=== PATIENT | female | born 1940 | race Caucasian/White ===

== ENCOUNTER 2017-07-27 23:37 | Observation (INO) | payer OTHER ==
[2017-07-28] MEDS ORDERED: FAMOTIDINE 20 MG/2 ML VIAL IV ONE (02:29)
--- NOTE | 2017-07-28 05:12 | ER ---
Nurse's Notes [facility] Name: Alda Caceres Age: 77 yrs Sex: Female : 1940 Arrival Date: 07/27/2017 Time: 23:38 Bed 19 Private MD: Diagnosis: Chest Pain Presentation: 07/27 23:42 Presenting complaint: Patient states: "Starting last night I was in [place] and I ao started having this pain in my back then in came down and I was able to sleep. The pain came back this morning in the back, but now is radiating to my left side of my rib cage." Patient denies nausea, fever or diarrhea. Patient denies any fall or injuries to the back or the rib cage. Patient report indigestion also. Transition of care: patient was not received from another setting of care. Onset of symptoms was July 26, 2017 at 16:00. Care prior to arrival: Medication(s) given: Tylenol, 1000 mg, Around 1300. 23:42 Method Of Arrival: Ambulatory ao 23:42 Acuity: CIARAN 3 ao Triage Assessment: 07/28 00:01 General: Appears in no apparent distress. comfortable, Behavior is calm, cooperative, ao appropriate for age. Pain: Complains of pain in back Pain radiates to Left rib cage. Historical: - Allergies: 07/27 23:56 PENICILLINS; ao 23:56 codeine sulfate; ao - Home Meds: 23:56 rosuvastatin 20 mg oral tab 1 tab once daily [Active]; metformin 500 mg Oral tr24 1 tab ao twice a day [Active]; pioglitazone 45 mg oral tab 1 tab once daily [Active]; ramipril 10 mg Oral cap 1 cap once daily [Active]; diltiazem HCl 300 mg Oral cp24 1 cap once daily [Active]; hydrochlorothiazide 25 mg Oral tab 1 tab once daily [Active]; metoprolol tartrate 100 mg Oral tab 1 tab once daily [Active]; Januvia 100 mg oral tab 1 tab once daily [Active]; 07/28 07:00 Trulicity subcutaneous subcutaneous [Active]; rb1 - PMHx: 07/27 23:56 Hyperlipidemia; Hypertension; Diabetes - NIDDM; ao - PSHx: 23:56 Hysterectomy; Tonsillectomy; Appendectomy; ao - Immunization history:: Adult Immunizations up to date. - Social history:: Smoking status: Patient/guardian denies using tobacco, Patient/guardian denies using alcohol, street drugs. Screenin/25 01:48 Abuse screen: Denies threats or abuse. Nutritional screening: No deficits noted. rk2 Tuberculosis screening: No symptoms or risk factors identified. Fall Risk None identified. Assessment: 01:48 General: Appears in no apparent distress. obese, well developed, well nourished, rk2 Behavior is calm, cooperative. Pain: Complains of pain in back and abdomen. Neuro: Level of Consciousness is alert, obeys commands, Oriented to person, place, time, situation. Respiratory: Airway is patent Respiratory effort is even, unlabored, Respiratory pattern is regular, symmetrical. GI: Abdomen is obese. Derm: Skin is pink, warm \\T\\ dry. 05:03 Reassessment: See paper chart from 0200 to 0500 due to system down. ao 05:23 Reassessment: Patient appears in no apparent distress at this time. Patient and/or ao family updated on plan of care and expected duration. Pain level reassessed. Patient is alert, oriented x 3, equal unlabored respirations, skin warm/dry/pink. Waiting on room assignment. 06:32 Reassessment: Patient appears in no apparent distress at this time. Patient and/or ao family updated on plan of care and expected duration. Pain level reassessed. Patient is alert, oriented x 3, equal unlabored respirations, skin warm/dry/pink. Patient to be taken to her room after shift change. 07:00 General: Appears in no apparent distress. comfortable, Behavior is calm, cooperative. rb1 Neuro: Level of Consciousness is alert, obeys commands, Oriented to person, place, time, situation. Cardiovascular: Capillary refill < 3 seconds is brisk in bilateral fingers Rhythm is sinus rhythm with unifocal PVCs. Respiratory: Airway is patent Respiratory effort is even, unlabored, Respiratory pattern is regular, symmetrical. 07:00 Derm: Skin is pink, warm \\T\\ dry. rb1 07:00 Pain: Complains of pain in left flank and left ribs Pain currently is 5 out of 10 on a rb1 pain scale. 08:00 Reassessment: Patient appears in no apparent distress at this time. No changes from rb1 previously documented assessment. 08:25 Reassessment: Left a voice mail for Dr. Blue to put orders in for the pt so we could rb1 get a room and send her to the floor. 08:52 Reassessment: Patient appears in no apparent distress at this time. Patient and/or rb1 family updated on plan of care and expected duration. Pain level reassessed. Patient is alert, oriented x 3, equal unlabored respirations, skin warm/dry/pink. 09:00 Reassessment: Called Dr. Sandoval to see if he was taking this pt. He stated, "It will be rb1 Dr. Blue. Dr. Oropeza saw the pt. and should have put orders in.". 09:04 Reassessment: MAL Smallwood told me to go ahead and put in an order for a heart healthy rb1 diet until other orders are put in. 10:00 Reassessment: Patient and/or family updated on plan of care and expected duration. Pain aj1 level reassessed. General: Appears in no apparent distress. comfortable, Behavior is calm, cooperative. Pain: Complains of pain in back Pain currently is 3 out of 10 on a pain scale. Neuro: Level of Consciousness is awake, alert, obeys commands, Oriented to person, place, time, situation. Cardiovascular: Patient's skin is warm and dry. Rhythm is sinus rhythm with unifocal PVCs. Respiratory: Airway is patent Respiratory effort is even, unlabored, Respiratory pattern is regular, symmetrical. GI: Abdomen is non-distended. Derm: Skin is pink, warm \\T\\ dry. normal. 10:46 Reassessment: Patient appears in no apparent distress at this time. No changes from aj1 previously documented assessment. Patient and/or family updated on plan of care and expected duration. Pain level reassessed. Patient is alert, oriented x 3, equal unlabored respirations, skin warm/dry/pink. Vital Signs: 07/27 23:57 BP 155 / 66; Pulse 67; Resp 18; Temp 98.6; Pulse Ox 100% on R/A; Weight 72.57 kg; ao Height 6 ft. 4 in. (193.04 cm); Pain /10; 07/28 05:23 BP 158 / 55; Pulse 73; Resp 18; Pulse Ox 100% ; Pain 0/10; ao 06:32 BP 148 / 56; Pulse 79; Resp 12; Temp 98.2(O); Pulse Ox 22% ; Pain 0/10; ao 07:00 BP 149 / 70; Pulse 74; Resp 16; Pulse Ox 100% on R/A; Weight 72.57 kg (R); Height 5 ft. rb1 6 in. (167.64 cm); Pain 5/10; 08:00 BP 163 / 63; Pulse 75; Resp 18; Pulse Ox 100% on R/A; rb1 10:44 BP 162 / 75; Pulse 80; Resp 18; Temp 98.9; Pulse Ox 100% on R/A; aj1 07:00 Body Mass Index 25.82 (72.57 kg, 167.64 cm) rb1 07:00 CORRECTION ON HEIGHT AND WEIGHT rb1 ED Course: 07/27 23:38 Patient arrived in ED. do 23:48 Triage completed. ao 23:57 Arm band placed on right wrist. Patient placed in an exam room, on a stretcher, on ao pulse oximetry, Patient notified of wait time. 07/28 01:17 Mike Jimenez MD is Attending Physician. wa 01:48 Naomie Branham RN is Primary Nurse. rk2 01:48 Patient has correct armband on for positive identification. Placed in gown. Bed in low rk2 position. Call light in reach. 01:53 Lexx Valente MD is Hospitalizing Provider. wa 06:06 BMP Sent. ao 06:06 BNP Sent. ao 06:07 CBC with Diff Sent. ao 06:07 CPK Sent. ao 06:07 D-Dimer Sent. ao 06:07 Hepatic Function Sent. ao 06:07 Lipase Sent. ao 06:07 Magnesium Sent. ao 06:07 PT-INR Sent. ao 06:08 Urine Dipstick--Ancillary (enter results) Sent. ao 06:59 Report given to URIAH Andres. ao 07:00 Inserted saline lock: 20 gauge in right antecubital area, using aseptic technique. rb1 ,using aseptic technique. IV was inserted on overnight stocker, but was not documented. IV flushes well and has good blood return. 09:55 Report given to URIAH Guillen. rb1 10:44 Report given to URIAH Allred on 4th floor. aj1 10:45 No provider procedures requiring assistance completed. Patient admitted, IV remains in aj1 place. Administered Medications: 05:03 Not Given (SEE PAPER CHART FOR ADMINISTRATION): Pepcid 20 mg IVP once ao Outcome: 01:54 Decision to Hospitalize by Provider. ny 10:47 Admitted to Tele accompanied by tech, via wheelchair, room 402, with chart. aj1 10:47 Condition: stable 10:47 Discharge instructions given to patient, Instructed on the need for admit, Demonstrated understanding of instructions. 11:08 Patient left the ED. aj1 Signatures: Jeanne Corrales RN RN aj1 Mckenna Sanchez RN RN rb1 Nabeel Marcum RN RN ao Ogletree, Danielle do Appiah, William, MD MD wa Kidder, Rhonda, RN RN rk2 Corrections: (The following items were deleted from the chart) 07/27 23:49 23:42 Presenting complaint: Patient states: "Starting last night I was in [place] and I ao started having this pain in my back then in came down and I was able to sleep. The pain came back this morning in the back, but now is radiating to my left side of my rib cage." Patient denies nausea, fever or diarrhea. Patient denies any fall or injuries to the back or the rib cage. ao 07/28 07:38 07:00 Cardiovascular: Capillary refill < 3 seconds is brisk in bilateral fingers rb1 rb1
--- NOTE | 2017-07-28 05:12 | EDPHYS ---
Physician Documentation [facility] Name: Alda Caceres Age: 77 yrs Sex: Female : 1940 Arrival Date: 07/27/2017 Time: 23:38 Bed 19 Private MD: ED Physician Mike Jimenez Historical: - Allergies: 07/27 23:56 PENICILLINS; ao 23:56 codeine sulfate; ao - Home Meds: 23:56 rosuvastatin 20 mg oral tab 1 tab once daily [Active]; metformin 500 mg Oral tr24 1 tab ao twice a day [Active]; pioglitazone 45 mg oral tab 1 tab once daily [Active]; ramipril 10 mg Oral cap 1 cap once daily [Active]; diltiazem HCl 300 mg Oral cp24 1 cap once daily [Active]; hydrochlorothiazide 25 mg Oral tab 1 tab once daily [Active]; metoprolol tartrate 100 mg Oral tab 1 tab once daily [Active]; Januvia 100 mg oral tab 1 tab once daily [Active]; 07/28 07:00 Trulicity subcutaneous subcutaneous [Active]; rb1 - PMHx: 07/27 23:56 Hyperlipidemia; Hypertension; Diabetes - NIDDM; ao - PSHx: 23:56 Hysterectomy; Tonsillectomy; Appendectomy; ao - Immunization history:: Adult Immunizations up to date. - Social history:: Smoking status: Patient/guardian denies using tobacco, Patient/guardian denies using alcohol, street drugs. Vital Signs: 23:57 BP 155 / 66; Pulse 67; Resp 18; Temp 98.6; Pulse Ox 100% on R/A; Weight 72.57 kg; ao Height 6 ft. 4 in. (193.04 cm); Pain 5/10; 07/28 05:23 BP 158 / 55; Pulse 73; Resp 18; Pulse Ox 100% ; Pain 0/10; ao 06:32 BP 148 / 56; Pulse 79; Resp 12; Temp 98.2(O); Pulse Ox 22% ; Pain 0/10; ao 07:00 BP 149 / 70; Pulse 74; Resp 16; Pulse Ox 100% on R/A; Weight 72.57 kg (R); Height 5 ft. rb1 6 in. (167.64 cm); Pain 5/10; 08:00 BP 163 / 63; Pulse 75; Resp 18; Pulse Ox 100% on R/A; rb1 10:44 BP 162 / 75; Pulse 80; Resp 18; Temp 98.9; Pulse Ox 100% on R/A; aj1 07:00 Body Mass Index 25.82 (72.57 kg, 167.64 cm) rb1 07:00 CORRECTION ON HEIGHT AND WEIGHT rb1 MDM: 01:17 Patient medically screened. 07/28 01:42 Order name: BMP 07/28 01:42 Order name: BNP 07/28 01:42 Order name: CBC with Diff 07/28 01:42 Order name: CPK 07/28 01:42 Order name: D-Dimer 07/28 01:42 Order name: Hepatic Function 07/28 01:42 Order name: Lipase 07/28 01:42 Order name: Magnesium 07/28 01:42 Order name: PT-INR 07/28 01:42 Order name: Troponin (emerg Dept Use Only) 07/28 04:59 Order name: Urine Dipstick--Ancillary (enter results) em1 07/28 05:19 Order name: BNP B-Type Natriuretic Peptide; Complete Time: 15:17 EDMS 07/28 05:20 Order name: Troponin (Emerg Dept Use Only); Complete Time: 15:17 EDMS 07/28 05:20 Order name: Basic Metabolic Panel; Complete Time: 15:17 EDMS 07/28 05:21 Order name: Liver (Hepatic) Function; Complete Time: 15:17 EDMS 07/28 05:21 Order name: Creatine Phosphokinase; Complete Time: 15:17 EDMS 07/28 05:21 Order name: Magnesium; Complete Time: 15:17 EDMS 07/28 05:21 Order name: Lipase; Complete Time: 15:17 EDMS 07/28 05:23 Order name: CBC with Automated Diff; Complete Time: 15:17 EDMS 07/28 05:25 Order name: Protime (+INR); Complete Time: 15:17 EDMS 07/28 05:25 Order name: D-Dimer; Complete Time: 15:17 EDMS 07/28 08:08 Order name: Urine Dipstick-Ancillary; Complete Time: 15:17 EDMS 07/28 09:14 Order name: CBC with Automated Diff; Complete Time: 15:17 EDMS 07/28 09:16 Order name: Basic Metabolic Panel; Complete Time: 15:17 EDOK 07/28 09:16 Order name: Lipase; Complete Time: 15:17 [facility] 07/28 09:20 Order name: Protime (+INR); Complete Time: 15:17 [facility] 07/28 09:20 Order name: D-Dimer; Complete Time: 15:17 [facility] 07/28 09:21 Order name: Troponin (Emerg Dept Use Only); Complete Time: 15: EDOK 07/28 09:22 Order name: Liver (Hepatic) Function; Complete Time: 15: EDMS 07/28 09:22 Order name: Creatine Phosphokinase; Complete Time: 15: EDOK 07/28 01:42 Order name: XRAY Chest Pa And Lat (2 Views) sc 07/28 01:42 Order name: EKG; Complete Time: 05:11 sc 07/28 01:42 Order name: Cardiac monitoring; Complete Time: 05:03 sc 07/28 01:42 Order name: EKG - Nurse/Tech; Complete Time: 05:03 sc 07/28 01:42 Order name: IV Saline Lock; Complete Time: 05:03 sc 07/28 01:42 Order name: Labs collected and sent; Complete Time: 05:03 sc 07/28 01:42 Order name: O2 Per Protocol; Complete Time: 05:03 sc 07/28 01:42 Order name: O2 Sat Monitoring; Complete Time: 05:03 sc 07/28 01:42 Order name: Urine Dipstick-Ancillary (obtain specimen); Complete Time: 05:03 sc 07/28 08:24 Order name: RAD; Complete Time: 15:17 [facility] 07/28 08:36 Order name: CT; Complete Time: 15:17 [facility] 07/28 09:02 Order name: Diet Heart Healthy; Complete Time: 09:03 [facility] 07/28 09:22 Order name: Magnesium; Complete Time: 15:17 [facility] 07/28 09:24 Order name: BNP B-Type Natriuretic Peptide; Complete Time: 15:17 EDMS Administered Medications: 05:03 Not Given (SEE PAPER CHART FOR ADMINISTRATION): Pepcid 20 mg IVP once ao Disposition: 07/28/17 01:54 Hospitalization ordered by Lexx Valente for Observation. Preliminary diagnosis is Chest Pain. - Bed requested for Telemetry/MedSurg (observation). - Status is Observation. aj1 - Condition is Stable. - Problem is new. - Symptoms have improved. UTI on Admission? No Addendum: 08/09/2017 15:21 Addendum: CC: chest pain. HPI: \T\7 yo F presents with c/o chest pain and indigestion. wa Noted L rib cage pain the night prior. described as sharp and radiates to back. denies n/v, fever, cough, chills. states resolved and was able to sleep. today noted similar pain. 09/12. mid back location. also L side rib area. denies known trauma. PMHx: HTN, DM, high chol. PSurg.Hx: hysterectomy. appendectomy. tonsillectomy. Allergies: PCN. Codeine. SHx: denies tobacco use, ETOH or recreational drugs. ROS: All ROS wnl except for as stated in HPI above. Exam: Const: Alert. conversant. NAD. HEENT: normocephalic. atraumatic. moist mucosa. neck supple with no masses or deformity. CVS: NS1S2. RRR. no murmurs. CHEST: clear to auscultation bilaterally. good excursion. Abd: soft. non-distended. non-tender. Ext: no swelling. no edema. Neuro: equal strength. non-lateralizing. Psych: pleasant. nml affect. DDx: 77 yo F with chest pain that moves to back. r/o ACS, dissection, pancreatitis, bowel obstruction, pna, PE. will check EKG, labs, CXR, CT. will give meds and reassess. Results: nml CXR. CTchest/abd/pelvis: no acute process. labs noted for elevated d-dimer and BNP. elevated BUN/Cr. elevated glucose. low Na, Cl, Mg, and wbc. Dispo: admit for further eval by cardiology, r/o ACS. Dx: chest pain. back pain. hyperglycemia. Signatures: Dispatcher [employer] EDMS Shazia Davidson Angela RN RN aj1 Mckenna Sanchez RN RN rb1 Nabeel Marcum RN RN ao Mike Jimenez MD MD wa
[2017-07-28 05:20] LABS: Albumin 4.8 g/dL (3.2-5.5); Bilirubin Direct 0.1 mg/dL (0-0.2); Bilirubin Total 0.6 mg/dL (0.3-1.2); Magnesium 1.6 mg/dL (1.8-2.5); Potassium 3.6 mEq/L (3.6-5.0); Protein, Total 7.7 g/dL (6.0-8.3)
[2017-07-28 05:23] LABS: Absolute Monocytes 0.5 K/uL (0.1-1.3); Absolute Neutrophil 2.3 K/uL (1.8-8.0); Basophils % 0.4 % (0-1.3); Eosinophils % 0.8 % (0-4.4); Hematocrit 34.4 % (36.0-45.0); Lymphocytes % 26.2 % (15.3-44.8); MCH 28.7 pg (27.0-35.0); MCV 84.4 fL (80-100); MPV 7.7 fL (7.6-11.3); Monocytes % 12.1 % (3.3-12.3); RBC Red Blood Cell Count 4.07 M/uL (3.86-4.86)
[2017-07-28 05:25] LABS: Protime INR 0.97
[2017-07-28 08:08] LABS: Urine Blood NEGATIVE (NEG); Urine Glucose NEGATIVE (NEG); Urine Protein NEGATIVE (NEG); Urine pH 5.5 (5.0-7.0)
[2017-07-28 08:22] VITALS: BMI 25.8
--- NOTE | 2017-07-28 08:22 | RAD REPORT ---
EXAM DESCRIPTION: RAD - Chest Pa And Lat (2 Views) - 07/28/2017 6:47 am CLINICAL HISTORY: Cough and congestion COMPARISON: None. TECHNIQUE: PA and lateral views of the chest were obtained. FINDINGS: The lungs are clear. Heart size is normal and central vasculature is within normal limit s. No pleural effusion or pneumothorax seen. No acute bony finding noted. No aortic abnormality. IMPRESSION: No acute cardiopulmonary process.
--- NOTE | 2017-07-28 08:35 | RAD REPORT ---
EXAM DESCRIPTION: CT - Thorax Wo Con - 07/28/2017 6:34 am CLINICAL HISTORY: Left-sided chest pain, back pain, rib pain on the left A preliminary written report was provided at the time of the study, and the report was reviewed prio r to final dictation. COMPARISON: Chest exam same date TECHNIQUE: Axial 5 mm thick images of the chest were obtained without IV contrast. All CT scans are performed using dose optimization technique as appropriate and may include automated exposure control or mA/KV adjustment according to patient size. FINDINGS: No mass or infiltrate in the lung parenchyma. No pleural thickening or pleural effusion. N o pneumothorax. No abnormal mediastinal or hilar masses or lymphadenopathy seen. No gross aortic or pulmonary artery finding suspected. Assessment is limited in the absence of IV contrast. No cardiomegaly present. No abnormal pericardial thickening. No chest wall mass, rib lesion or abnormal axillary lymphadenopathy. The patient does have some degen erative change at the left shoulder joint. This appears mild but is not fully assessed. Thoracic spin e degenerative changes are present. No compression fracture or pathologic bone process seen. No deandra aureliano mass. Limited upper abdomen imaging shows in indeterminate 15 millimeter left adrenal mass. Attenuation is relatively low at less than 15 Hounsfield units. Prominent adrenal tissue or small adenoma would be m ost likely. The anterior upper pole of the right kidney shows a lobulated somewhat irregular contour. There is a similar prominence to the anterior mid left kidney. These are not fully imaged. IMPRESSION: Negative CT chest examination for acute or significant finding. Lobulated appearance to both kidneys not fully assessed on this CT chest noncontrast study. Small le ft adrenal mass is present probably an adenoma. Comparison to any prior outside CT imaging of the abdomen would be helpful. If no outside imaging is known, follow-up renal sonography could be performed to evaluate the kidneys. The probability that th e adrenal mass is significant is felt to be quite low.
[2017-07-28 09:08] LABS: Protime INR 0.99
[2017-07-28 09:13] LABS: Absolute Lymphocytes (CBC) 0.8 K/uL (0.7-4.9); Absolute Monocytes 0.4 K/uL (0.1-1.3); Absolute Neutrophil 2.7 K/uL (1.8-8.0); Basophils % 0.3 % (0-1.3); Eosinophils % 0.4 % (0-4.4); Hematocrit 36.3 % (36.0-45.0); Lymphocytes % 20.7 % (15.3-44.8); MCH 28.4 pg (27.0-35.0); MPV 7.7 fL (7.6-11.3); Monocytes % 9.4 % (3.3-12.3); RBC Red Blood Cell Count 4.27 M/uL (3.86-4.86)
[2017-07-28 09:15] LABS: Potassium 3.8 mEq/L (3.6-5.0)
[2017-07-28 09:21] LABS: Albumin 4.5 g/dL (3.2-5.5); Bilirubin Direct 0.1 mg/dL (0-0.2); Bilirubin Total 0.7 mg/dL (0.3-1.2); Magnesium 1.6 mg/dL (1.8-2.5); Protein, Total 7.3 g/dL (6.0-8.3)
--- NOTE | 2017-07-28 10:47 | EKG ---
Test Date: 2017-07-28 Test Time: 02:21:44 Indoor Plant Technician: TANESHA MEASUREMENT RESULTS: Intervals: Rate: 74 FL: 166 QRSD: 88 QT: 426 QTc: 472 Tyler: P: 68 FL: 166 QRS: 36 T: 76 INTERPRETIVE STATEMENTS: Sinus rhythm with occasional premature ventricular complexes Otherwise normal ECG No previous ECG available for comparison Electronically Signed On 07-28-17 10:47:06 CDT by Brent Amanda
[2017-07-28] MEDS ORDERED: DILTIAZEM HCL 180 MG SR CAP PO SCH (12:00)
[2017-07-28] MEDS ORDERED: DILTIAZEM HCL 300 MG SR CAP PO SCH (12:00)
[2017-07-28] MEDS: RAMIPRIL 5 MG CAP PO SCH ×2 (12:38→20:50)
[2017-07-28] MEDS: DILTIAZEM HCL 180 MG SR CAP PO SCH (12:38)
[2017-07-28] MEDS: DILTIAZEM HCL 120 MG SR CAP PO SCH (12:38)
[2017-07-28] MEDS ORDERED: HOME MED 1 EA UNK (Ramipril [Altace] 10 MG) PO SCH (14:00)
[2017-07-28] MEDS: ACETAMINOPHEN 500 MG TAB PO PRN (14:27)
[2017-07-28] MEDS ORDERED: GLUCAGON 1 MG/VIAL IM PRN (14:53)
[2017-07-28] MEDS ORDERED: D50W 25 GM/50 ML SYRINGE IV PRN (14:53)
--- NOTE | 2017-07-28 14:54 | P.HP ---
Certification for Inpatient Patient admitted to: Observation With expected LOS: >2 Midnights Patient will require the following post-hospital care: None Practitioner: I am a practitioner with admitting privileges, knowledge of patient current condition, hospital course, and medical plan of care. Services: Services provided to patient in accordance with Admission requirements found in Title 42 Section 412.3 of the Code of Federal Regulations Patient History Date of Service: 07/28/17 Primary Care Provider: OOT Reason for admission: Chest Pain History of Present Illness: This is a 77-year-old male with significant past medical history of diabetes, high blood pressure, hyperlipidemia who presented to the ED complaining of having some chest pain. Patient stated that last night she was in [place] and she started having the pain in the back which came down a little bit and she was able to easily sleep. However this morning she woke up with chest pain and was radiating to the left side on her rib cage. Patient stated that along with the chest pain she did not have any other associated symptoms of nausea vomiting or shortness of breath. Allergies codeine Allergy (Verified 07/28/17 05:21) Itching/Hives/Rash Penicillins Allergy (Verified 07/28/17 05:21) Itching/Hives/Rash codeine sulfate Allergy (Uncoded 07/28/17 11:12) Unknown Home Medications: Acetaminophen [Pain Relief] 500 mg PO PRN PRN 07/28/17 Diltiazem HCl [Diltiazem ER] 300 mg PO DAILY 07/28/17 Hydrochlorothiazide [Hydrochlorothiazide*] 25 mg PO DAILY 07/28/17 Metformin ER [Glucophage ER] 500 mg PO BID* 07/28/17 Metoprolol Tartrate [Lopressor] 100 mg PO DAILY 07/28/17 Pioglitazone [Actos] 45 mg PO DAILY 07/28/17 Ramipril [Altace] 10 mg PO BID* 07/28/17 Rosuvastatin [Crestor] 20 mg PO BEDTIME 07/28/17 Sitagliptin Phosphate [Januvia*] 1 tab PO DAILY 07/28/17 - Past Medical/Surgical History Has patient received pneumonia vaccine in the past: Yes Diabetic: Yes -: hyperlipidemia -: hypertension -: diabetes-NIDD -: Appendectomy -: tonsilectomy -: Hysterectomy - Family History Father History Unknown: Yes -: Heart disease Mother History Unknown: Yes -: Heart disease Brother History Unknown: Yes -: Cancer Sister History Unknown: Yes -: Cancer - Social History Smoking Status: Never smoker Alcohol use: No CD- Drugs: No Caffeine use: Yes Place of Residence: Home Review of Systems General: As per HPI Physical Examination - Vital Signs Temperature: 98.9 F Blood Pressure: 162/75 Pulse: 80 Respirations: 18 - Physical Exam General: Alert, In no apparent distress, Oriented x3 HEENT: Atraumatic, PERRLA, Mucous membr. moist/pink, EOMI, Sclerae nonicteric Neck: Supple, 2+ carotid pulse no bruit, No LAD, Without JVD or thyroid abnormality Respiratory: Clear to auscultation bilaterally, Normal air movement Cardiovascular: Regular rate/rhythm, Normal S1 S2 Gastrointestinal: Normal bowel sounds, No tenderness Musculoskeletal: No tenderness Integumentary: No rashes Neurological: Normal gait, Normal speech, Normal strength at 5/5 x4 extr, Normal tone, Normal affect Lymphatics: No axilla or inguinal lymphadenopathy Assessment and Plan - Problems (Diagnosis) (1) Chest pain Current Visit: Yes Status: Acute Plan: Chest Pain. Troponin x 2 negative. Nonspecific changes on EKG -Cardiology consulted. -Stress test in AM -ACS guideline. -abd us to r/o any other causes Qualifiers: Chest pain type: precordial pain Qualified Code(s): R07.2 - Precordial pain (2) HTN (hypertension) Current Visit: Yes Status: Chronic Plan: On cardizem, Metoprol, HCTZ and Ramipril. Will restart here in the hospital Qualifiers: Hypertension type: essential hypertension Qualified Code(s): I10 - Essential (primary) hypertension (3) Diabetes Current Visit: Yes Status: Chronic Plan: ISS with crestor Qualifiers: Diabetes mellitus type: type 2 (4) Hyperlipidemia Current Visit: Yes Status: Chronic Qualifiers: Hyperlipidemia type: mixed hyperlipidemia Qualified Code(s): E78.2 - Mixed hyperlipidemia Discharge Plan: Other - Advance Directives Does patient have a Living Will: No Does patient have a Durable POA for Healthcare: No - Code Status/Comfort Care Code Status Assessed: Yes Critical Care: No
[2017-07-28] MEDS: INSULIN -REGULAR HUMAN 50 UNIT/0.5 ML ML SQ SCH ×2 (16:30→20:51)
--- NOTE | 2017-07-28 16:55 | CON ---
History Of Present Illness: Mrs. Caceres is 77 years old. She started having chest pain almost 48 hours ago. The pain is left lower back, quite a bit towards the middle. It radiates in a dermatome-type pattern to the front of her chest, most intense in the axilla. There has been no rash. She has had a slight chill and shaking of her hands. No rigors. No nausea, vomiting, or sweating. She came to the hospital today and has been found to have an EKG that is unremarkable, CT scan of the chest that is normal, plain chest x-ray that looks normal. No evidence of a rash. Her laboratory exam reveals hyponatremia, elevated B-natriuretic peptide with normal troponins. Blood sugars are 176 and 178, creatinine 1.57 and 1.35. The patient has a history of migraine headaches, history of hypertension and diabetes. Outpatient Medications: Metformin, Januvia, diltiazem, Actos, hydrochlorothiazide, rosuvastatin, ramipril, and metoprolol. Allergies: SHE REPORTS DRUG INTOLERANCE TO CODEINE AND PENICILLIN. Physical Examination: Vital Signs: 5 feet 6 inches, 160 pounds. HEENT: Normal. Lungs: Clear. Cardiac Exam: Normal. No friction, rub, murmur, or gallop. Abdomen: Soft. Extremities: Normal. No rash. No edema. No cyanosis or clubbing. Distal pulses normal. Social History: She uses no tobacco. Rare alcohol. No illegal drugs. Impression: Mrs. Caceres is not having an acute coronary syndrome. It would be a most unusual presentation for angina. I would recommend we do a pharmacologic stress test. She certainly has risk factors for coronary artery disease. Her symptoms sound most like a pre-eruptive phase of shingles. The main thing is the burning nature, some hypersensitivity of the skin when it is bad, in fact that it is over her dermatome. She thinks, she may have had a shingle vaccine, so there could be seen a subclinical manifestation of shingles , but we need to make sure there is not underlying ischemic heart disease with her numerous risk factors, so we will do an echo and pharmacologic stress tomorrow. YOEL/LITTLE Voice ID: [id number] Report ID: [id number] TIO
[2017-07-28 17:43] VITALS: O2SAT 99
[2017-07-28] MEDS ORDERED: ROSUVASTATIN 10 MG TAB PO SCH (21:00)
[2017-07-29] MEDS: INSULIN -REGULAR HUMAN 50 UNIT/0.5 ML ML SQ SCH ×2 (07:30→11:30)
[2017-07-29] MEDS: DILTIAZEM HCL 120 MG SR CAP PO SCH (09:00)
[2017-07-29] MEDS ORDERED: DILTIAZEM HCL 180 MG SR CAP PO SCH (09:00)
[2017-07-29] MEDS ORDERED: DILTIAZEM HCL 120 MG SR CAP PO SCH (09:00)
[2017-07-29] MEDS ORDERED: ASPIRIN EC 81 MG TAB PO SCH (09:00)
[2017-07-29] MEDS ORDERED: hydroCHLOROthiazide 12.5 MG CAP PO SCH (09:00)
[2017-07-29] MEDS ORDERED: DILTIAZEM HCL 300 MG PO SCH (09:00)
[2017-07-29] MEDS ORDERED: HOME MED 1 EA UNK (Metoprolol Tartrate [Lopressor] 100 MG) PO SCH (09:00)
[2017-07-29] MEDS: DILTIAZEM HCL 180 MG SR CAP PO SCH (09:00)
[2017-07-29] MEDS: RAMIPRIL 5 MG CAP PO SCH (09:00)
[2017-07-29] MEDS ORDERED: METOPROLOL TAR 50 MG TAB PO SCH (09:00)
[2017-07-29] MEDS: ACETAMINOPHEN 500 MG TAB PO PRN (11:44)
[2017-07-29] MEDS ORDERED: REGADENOSON 0.4 MG/5 ML SYR IV ONE (11:46)
--- NOTE | 2017-07-29 13:34 | ECHO ---
HEIGHT: 5 ft 6 in WEIGHT: 160 lb 0 oz DATE OF STUDY: 07/29/[address]: Brent Amanda MD 2-DIMENSIONAL: YES M.MODE: YES DOPPLER: YES COLOR FLOW: YES TDS: NO PORTABLE: YES DEFINITY: NO BUBBLE STUDY: NO DIAGNOSIS: CHEST PAIN CARDIAC HISTORY: CATHERIZATION: NO SURGERY: NO PROSTHETIC VALVE: NO PACEMAKER: NO MEASUREMENTS (cm) DIASTOLIC (NORMALS) SYSTOLIC (NORMALS) IVSd 1.1 (0.6-1.2) LA Diam 4.3 (1.9-4.0) LVEF 71% LVIDd 4.0 (3.5-5.7) LVIDs 2.4 (2.0-3.5) %FS 40% LVPWd 1.2 (0.6-1.2) Ao Diam 2.6 (2.0-3.7) 2 DIMENSIONAL ASSESSMENT: RIGHT ATRIUM: NORMAL LEFT ATRIUM: DILATED RIGHT VENTRICLE: NORMAL LEFT VENTRICLE: NORMAL TRICUSPID VALVE: NORMAL MITRAL VALVE: NORMAL PULMONIC VALVE: NORMAL AORTIC VALVE: NORMAL PERICARDIAL EFFUSION: NONE AORTIC ROOT: NORMAL LEFT VENTRICULAR WALL MOTION: NORMAL. DOPPLER/COLOR FLOW: NORMAL. COMMENTS: NORMAL LEFT VENTRICULAR EJECTION FRACTION. DILATED LEFT ATRIUM. OTHERWISE NORMAL 2D ECHO WITH DOPPLER. TECHNOLOGIST: ESSIE FRANCIS
--- NOTE | 2017-07-29 14:26 | RAD REPORT ---
EXAM DESCRIPTION: NM - Rest Stress Cardiac Imaging - 07/29/2017 2:20 pm CLINICAL HISTORY: Chest pain. COMPARISON: None. TECHNIQUE: The patient was administered approximately 10mCi of Tc 99m Sestamibi prior to resting SPE CT imaging of the heart. The patient was then administered approximately 30 mCi of Tc 99m Sestamibi f ollowing exercise or pharmacologic stress. Multiplanar SPECT images were reviewed. FINDINGS: There is uniformity of radiotracer uptake involving the entire left ventricular myocardiu m. The left ventricular ejection fraction equals 72%. IMPRESSION: Negative for a myocardial perfusion defect
[2017-07-29] MEDS ORDERED: LORazepam 2 MG/ML VIAL IV ONE (15:02)
--- NOTE | 2017-07-29 16:15 | TREADPHA ---
DX: CHEST PAIN, MYOCARDIAL INFARCTION WAS RULED OUT Date of Study: 07/29/2017 Ht: 5' 6 " Wt: 160 lb 0 oz Consulting Physician: SAURABH MEDICATIONS: TYLENOL, ASPIRIN, DEXTROSE, CARDIZEM, GLUCAGEN, NOVOLIN-R, LOPRESSOR, ALTACE, CRESTOR HISTORY: 77 YEAR OLD FEMALE WITH COMPLAINTS OF CHEST PAIN. HISTORY OF HYPERTENSION, DIABETES MELLITUS AND HYPERLIPIDEMIA PHYSICIAL EXAMINATION: RESTING B.P.: 152/62 RESTING H.R.: 100 RESTING EKG: SINUS WITH PREMATURE VENTRICULAR COMPLEXES PROTOCOL: EXERCISE TIME: 3:30 B.P. AT PEAK STRESS: 147/65 IMPRESSION: LEXISCAN INJECTED PER PROTOCOL. SEE NUCLEAR MEDICINE REPORT. NO CHEST PAIN. NO SUPRAVENTRICULAR TACHYCARDIA. NO VENTRICULAR TACHYCARDIA. NON-DIAGNOSTIC ELECTROCARDIOGRAM WITH LEXISCAN STRESS.
[2017-07-29 16:45] VITALS: BP 145/69; TEMP 98
--- NOTE | 2017-07-30 01:50 | DS ---
Date of Discharge: 07/29/2017 Consultants: Dr. Amanda with Cardiology. Procedures: On 07/29/2017, cardiac stress test which was negative. Admitting Diagnoses: 1.Chest pain, rule out acute coronary syndrome. 2.Essential hypertension. 3.Diabetes mellitus type 2 with hyperglycemia without long-term use of insulin. 4.Hyperlipidemia. Discharge Diagnoses: 1.Chest pain. Acute coronary syndrome ruled out. Negative stress test. 2.Essential hypertension, stable. 3.Diabetes mellitus type 2 with hyperglycemia without long-term use of insulin. 4.Hyperlipidemia. 5.Acute versus acute on chronic kidney injury. Creatinine is improving. Hospital Course: The patient is a 77-year-old female, who was admitted to the hospital for chest yahir n. The patient was started on ACS guidelines. Cardiac enzymes and EKG were negative. ACS was ruled out. The patient had multiple imaging studies including CT scan of the chest, which just showed a s mall adenoma on the left side. Chest x-ray was negative. Echocardiogram showed EF of 71%. The octavio ent was seen by Cardiology, who recommended stress test. Stress test was done which was negative for myocardial perfusion defect. The patient's symptoms had resolved. She was feeling better. The pat ient did have some mildly elevated creatinine, which improved with IV fluids. No baseline for compar lyle. The patient's electrolytes improved. The patient was then cleared for discharge from Cardiolo gy standpoint and was discharged home once stress test was negative. Condition: Stable. Activity: As tolerated. Medications: As per medication reconciliation list. Followup: Follow up with primary care physician in 2 to 3 days. Follow up with transportation dispatcher, Dr. Dale rodriguez, in 2 weeks. Return to ER for worsening condition. Medications: As per medication reconciliation list. Physical Examination: General: Awake, alert, oriented, no acute distress. CV: S1, S2. No murmurs. Regular rate and rhythm. Peripheral pulses present. Respiratory: Clear to auscultation bilaterally. No wheezing. Abdomen: Abdomen is soft, nontender, nondistended. Positive bowel sounds. Extremities: No clubbing, cyanosis, or edema. Neuro: Nonfocal. SA/MODL Voice ID: [id number] Report ID: [id number]
== END 2017-07-29 17:08 | disposition home or self-care (01) ==
LOC: ER 23:37 → ERHOLD 07-28 01:54 → 4TH 07-28 10:47
PROVIDERS: ADMIT Internal Medicine; ATTEND Family Medicine
DX: R07.9 Chest pain, unspecified (principal); I10 Essential (primary) hypertension; E11.65 Type 2 diabetes mellitus with hyperglycemia; E78.5 Hyperlipidemia, unspecified; Z88.0 Allergy status to penicillin
CPT/HCPCS: 36415; 71046; 71250; 78452; 80048 ×2; 80076 ×2; 81003; 82550 ×2; 82962 ×6; 83690 ×2; 83735 ×2; 83880 ×2; 84484 ×2; 85025 ×2; 85379 ×2; 85610 ×2; 93005; 93017; 93306; 99285; A9500; G0378 ×2; J2785